=== PATIENT | female | born 2000 | race Caucasian/White ===

== ENCOUNTER 2025-08-04 23:41 | Emergency (ER) | payer MEDICAID, SELFPAY | END 2025-08-05 00:48 | disposition home or self-care (01) | LOC: CSHERS 23:41 | DX: B34.9 Viral infection, unspecified (principal) | CPT/HCPCS: 87426; 99283 ==

== ENCOUNTER 2025-08-21 22:28 | Emergency (ER) | payer MEDICAID | END 2025-08-22 01:46 | disposition home or self-care (01) | LOC: CSHERS 22:28 | DX: O36.80X0 Pregnancy with inconclusive fetal viability, not applicable or unspecified (principal) | CPT/HCPCS: 76856; 84702 ==

== ENCOUNTER 2025-08-26 21:26 | Emergency (ER) | payer MEDICAID | END 2025-08-26 23:30 | disposition home or self-care (01) | LOC: CSHERS 21:26 | DX: O99.891 Other specified diseases and conditions complicating pregnancy (principal); M54.9 Dorsalgia, unspecified; Z3A.00 Weeks of gestation of pregnancy not specified | CPT/HCPCS: 36415; 76856; 84702 ==

== ENCOUNTER 2025-08-31 10:40 | Emergency (ER) | payer MEDICAID | END 2025-08-31 10:58 | disposition home or self-care (01) | LOC: CSHERS 10:40 | DX: O99.891 Other specified diseases and conditions complicating pregnancy (principal); R12 Heartburn; Z3A.01 Less than 8 weeks gestation of pregnancy | CPT/HCPCS: 96372; 96374; 96375 ==

== ENCOUNTER 2025-11-05 22:43 | Emergency (ER) | payer MEDICAID | END 2025-11-06 00:35 | disposition home or self-care (01) | LOC: CSHERS 22:43 | DX: O98.512 Other viral diseases complicating pregnancy, second trimester (principal); Z3A.16 16 weeks gestation of pregnancy | CPT/HCPCS: 87081; 87428; 87430; 99283 ==